=== PATIENT | female | born 1990 | race African-American/Black ===

== ENCOUNTER 2021-07-03 16:47 | Emergency (ER) | payer MEDICAID ==
[~2021-07-03] VITALS: Ht 165.1 cm; Wt 67.0 kg
[2021-07-03 18:52] LABS: BASOPHILS % 0.4 % (0.0-2.0); HEMATOCRIT. 31.1 % (36.0-48.0); HEMOGLOBIN. 10.2 g/dL (12.0-16.0); LYMPHOCYTES % 9.9 % (20.0-50.0); MEAN CORPUSCULAR HEMOGLOBIN 29.3 pg (28.0-32.0); MEAN PLATELET VOLUME 9.1 fl (7.4-10.4); MONOCYTES % 12.9 % (2.0-8.0); NEUTROPHILS % 75.8 % (40.0-76.0); PLATELET 184 x1000/uL (130-400); RED BLOOD CELL COUNT 3.49 mill/uL (4.2-5.4); RED CELL DISTRIBUTION WIDTH 15.1 % (11.6-14.6)
[2021-07-03 18:53] LABS: CHLORIDE 107 mEq/L (98-107)
[2021-07-03 19:17] LABS: B-HCG QUANTITATIVE 11672 mIU/mL (<3)
[2021-07-03 22:07] VITALS: BP 146/91
== END 2021-07-03 22:11 | disposition home or self-care (01) ==
LOC: ER 16:47
DX: R55 Syncope and collapse (principal); J45.909 Unspecified asthma, uncomplicated; D64.9 Anemia, unspecified; Z87.440 Personal history of urinary (tract) infections; Z98.890 Other specified postprocedural states
CPT/HCPCS: 36415; 76805; 80053; 81025; 84702; 85025; 86850; 86900; 93005; 99285